=== PATIENT | female | born 1955 | race Caucasian/White ===

== ENCOUNTER 2016-11-29 09:40 | Emergency (ER) | payer BC, OTHER ==
[2016-11-29] MEDS ORDERED: METHYLPREDNISOLONE PF 125MG/VIAL IVP ONE (10:00)
[2016-11-29] MEDS ORDERED: METHYLPREDNISOLONE PF 125MG/VIAL IVP SCH (10:00)
--- NOTE | 2016-11-29 10:01 | Emergency Department Record ---
History of Present Illness - General Chief Complaint: Difficulty Breathing Stated Complaint: ARA Time Seen by Provider: 11/29/16 09:55 Source: Patient Mode of Arrival: Wheelchair Limitations: No limitations - History of Present Illness Initial Comments: 61 yo female presents to ED with a CC of sore throat and difficulty breathing that began last night associated with a fever of 101.5 last night. Patient denies chest pain or discomfort, denies cough symptoms. Patient denies rash, itching, or wheezing symptoms. Patient denies health problems other than depression. Onset/Timin -: Days(s) Severity: Moderate Consistency: Constant Worsens With: Nothing Associated Symptoms: Other Treatments Prior to Arrival: None - Related Data Home Medications Medication Instructions Recorded Confirmed Last Taken Zolpidem Tartrate [Zolpidem 5 mg PO QHS 12/14/13 11/29/16 11/28/16 Tartrate] Duloxetine HCl [Cymbalta] 30 mg PO DAILY 11/29/16 11/29/16 11/28/16 Levothyroxine Sodium [Synthroid] 25 mcg PO DAILY 11/29/16 11/29/16 11/28/16 Previous Rx's Medication Instructions Recorded Ibuprofen [Motrin 600Mg] 600 mg PO Q8H #30 tablet 03/24/15 Amoxicillin 500 mg PO TID #29 capsule 11/29/16 Allergies Allergy/AdvReac Type Severity Reaction Status Date / Time No Known Drug Allergies Allergy Verified 03/24/15 16:40 Travel Screening - Travel/Exposure Within Last 30 Days Have you traveled within the last 30 days?: No - Travel/Exposure Within Last Year Have you traveled outside the [place] in the last year?: No - Additonal Travel Details Have you been exposed to anyone with a communicable illness?: No Review of Systems Constitutional: Reports: Fever. Denies: Chills, Malaise, Night sweats Eyes: Denies: Eye discharge, Eye pain ENT: Reports: Throat pain. Denies: Congestion, Dental pain Respiratory: Reports: Dyspnea. Denies: Cough Cardiovascular: Denies: Chest pain, Dyspnea on exertion Endocrine: Denies: Fatigue, Heat or cold intolerance Gastrointestinal: Denies: Abdominal pain, Nausea, Vomiting Genitourinary: Denies: Incontinence, Retention Musculoskeletal: Denies: Back pain, Gout Skin: Denies: Bruising, Change in color Neurological: Denies: Abnormal gait, Confusion, Headache, Seizure Psychiatric: Denies: Anxiety Hematological/Lymphatic: Denies: Anemia, Blood Clots Past Medical History - SOCIAL HISTORY Smoking Status: Former smoker Alcohol Use: Occassional Drug Use: None - RESPIRATORY Hx Respiratory Disorders: No - CARDIOVASCULAR Hx Cardio Disorders: No - NEURO Hx Neuro Disorders: Yes Hx Headaches: Yes (MIGRAINES) Hx of Migraines: Yes (rarely) - GI Hx GI Disorders: No - Hx Genitourinary Disorders: No - ENDOCRINE Hx Endocrine Disorders: Yes Hx Thyroid Disease: Yes - MUSCULOSKELETAL Hx Musculoskeletal Disorders: Yes Hx Arthritis: Yes - PSYCH Hx Psych Problems: Yes Hx Anxiety: Yes - HEMATOLOGY/ONCOLOGY Hx Hematology/Oncology Disorders: Yes Hx Cancer: Yes (melanoma right shpulder. BCC abdomen) Family Medical History Any Significant Family History?: No Physical Exam - General General Appearance: Alert, Oriented x3, Cooperative, Mild distress Limitations: No limitations - Head Head exam: Atraumatic, Normocephalic, Normal inspection Head exam detail: negative: Abrasion, Contusion, Mercer's sign, General tenderness, Hematoma, Laceration - Eye Eye exam: Normal appearance. negative: Conjunctival injection, Periorbital swelling, Periorbital tenderness, Scleral icterus - ENT Ear exam: negative: Auricular hematoma, Auricular trauma Mouth exam: negative: Drooling, Laceration, Muffled voice, Tongue elevation Throat exam: Tonsillar erythema, Other (Unable to visulaize the posterior pharynx on examination) - Neck Neck exam: Normal inspection. negative: Lymphadenopathy, Meningismus - Respiratory Respiratory exam: Normal lung sounds bilaterally. negative: Rales, Respiratory distress, Rhonchi, Stridor - Cardiovascular Cardiovascular Exam: Regular rate, Normal rhythm, Normal heart sounds - GI/Abdominal GI/Abdominal exam: Soft. negative: Rebound, Rigid, Tenderness - Rectal Rectal exam: Deferred - exam: Deferred - Extremities Extremities exam: Normal inspection. negative: Pedal edema, Tenderness - Back Back exam: Denies: CVA tenderness (R), CVA tenderness (L) - Neurological Neurological exam: Alert, Oriented X3 - Psychiatric Psychiatric exam: Normal affect, Normal mood - Skin Skin exam: Normal color. negative: Abrasion Type of lesion: negative: abrasion Course Vital Signs 11/29/16 09:41 Temperature 98.2 F Pulse Rate 74 Respiratory 20 Rate Blood Pressure 136/76 Pulse Ox 100 - Reevaluation(s) Reevaluation #1: 11/29/16 10:00 EKG: NST 71 Normal axis, normal intervals No acute ST-T wave changes are present Reevaluation #2: 11/29/16 10:50 Labs reviewed, patient is positive for strep pharyngitis, labs are otherwise grossly unremarkable for an acute process. CT ST neck is pending to exclude underlying abscess. Reevaluation #3: 11/29/16 11:24 CT Soft Tissue Neck: Mild mucosal edema to the posterior pharynx c/w pharyngitis , no abscess, 4 mm stone rightt submandibular gland duct. patient and her significant other were updated on all results, and the patient appears stable for discharge at this time on Amoxicillin for treatment of her strep pharyngitis. Medical Decision Making - Lab Data Result diagrams: 11/29/16 10:06 11/29/16 10:06 Disposition Disposition: Discharge Clinical Impression: Strep pharyngitis Disposition: Home, Self-Care Condition: (2) Stable Instructions: Pharyngitis (ED) Additional Instructions: Return to ED if your symptoms worsen or if you have any concerns. Amoxicillin as directed. Follow-up with your family doctor in 3-5 days as directed. Prescriptions: Amoxicillin 500 mg PO TID #29 capsule Forms: Patient Portal Access Time of Disposition: 11:26
[2016-11-29 10:29] LABS: BASO % 0.4 % (0-6); EOS % 1.8 % (0-6); HEMATOCRIT 39.2 % (35.0-47.0); HEMOGLOBIN 13.2 gm/dl (11.6-16.0); LYMPH % 12.3 % (16-45); MEAN CELL VOLUME 88.1 fl (81-97); MEAN CORPUSCULAR HEMOGLOBIN 29.7 pg (27-33); MEAN CORPUSCULAR HGB CONC 33.7 g/dl (32-36); MEAN PLATELET VOLUME 10.1 fl (7.4-10.4); MONO % 10.5 % (0-9); PLATELET COUNT 240 K/uL (130-400); RED BLOOD COUNT 4.45 M/uL (3.80-5.40); RED CELL DISTRIBUTION WIDTH 13.8 % (11.5-14.5); WHITE BLOOD COUNT W/O DIFF 7.1 K/uL (4.2-12.2)
[2016-11-29 10:40] LABS: ALB/GLOB RATIO 1.3 (1.1-1.8); ALBUMIN 3.9 gm/dL (3.5-5.0); ALKALINE PHOSPHATASE 85 U/L (38-126); ALT/SGPT 16 U/L (9-52); ANION GAP 7.5 (7-16); AST/SGOT 22 U/L (14-36); BILIRUBIN,TOTAL 0.59 mg/dL (0.2-1.3); BLOOD UREA NITROGEN 13 mg/dL (7-17); CARBON DIOXIDE 22.5 mmol/L (22-30); CREATININE 0.8 mg/dL (0.52-1.04); EST GLOMERULAR FILTRATION RATE > 60 ml/min; GLUCOSE,RANDOM 92 mg/dL (70-110); TOTAL PROTEIN 6.8 gm/dL (6.3-8.2)
[2016-11-29] MEDS ORDERED: AMOXICILLIN 500MG CAPSULE PO ONE (10:58)
--- NOTE | 2016-11-30 22:48 | CT SCAN REPORT ---
EXAM: CT SCAN SOFT TISSUE NECK W CONTRAST HISTORY: SORE THROAT AND SWELLING. SYMPTOMS FOR THE PAST DAY. TECHNIQUE: Standard CT imaging of the neck was performed with contrast. 100 mL of Omnipaque-300 were administered. Additional coronal and sagittal reformatted images were also performed. COMPARISON: None. FINDINGS: The visualized intracranial structures are normal. The orbits, sinuses, mastoids, and middle ear cavities are unremarkable. The nasopharynx is normal. There is mild nonspecific mucosal edema within the posterior oropharynx/ hypopharynx as well as the soft palate and uvula suggesting pharyngitis. There is no loculated fluid collection or abscess. There is no mass. The epiglottis and aryepiglottic folds are normal. The retropharyngeal soft tissues are normal. The larynx is unremarkable. There are scattered nonenlarged lymph nodes within the neck bilaterally. There is no pathologic lymphadenopathy. A calcified stone is present within the right submandibular duct just inferior and medial to the submandibular gland. This measures 4 mm in maximal dimension. There is no associated inflammatory change. The parotid glands are normal. The thyroid gland enhances homogeneously. The superior mediastinum and lung apices are normal. IMPRESSION: 1. NONSPECIFIC MUCOSAL EDEMA WITHIN THE SOFT PALATE, UVULA, POSTERIOR OROPHARYNX , AND HYPOPHARYNX SUGGESTING PHARYNGITIS. THERE IS NO ABSCESS OR MASS. 2. A 4 MM RIGHT SUBMANDIBULAR GLAND DUCT STONE WITH NO ASSOCIATED INFLAMMATORY CHANGES. JOB NUMBER: [id number] MTDD
== END 2016-11-29 11:38 | disposition home or self-care (01) ==
LOC: ER 09:40
DX: J02.0 Streptococcal pharyngitis (principal); R06.00 Dyspnea, unspecified; K11.5 Sialolithiasis; Z87.81 Personal history of (healed) traumatic fracture
CPT/HCPCS: 99284 ×2; 96374; 85025; 80053; 87880; 70491; 93005; 93010; Q9967; J2930

== ENCOUNTER 2019-06-16 07:29 | Day surgery (SDC) | payer MEDICARE ==
[~2019-06-16 07:29] MED LIST: ACETAMINOPHEN 1,000 MG/100 ML BTL IVPB ONE; CEFAZOLIN 2 Gram 2 GM/50 ML BAG IVPB ONE; FAMOTIDINE 20MG TABLET PO ONE; METOCLOPRAMIDE 10 MG TABLET PO ONE; SCOPOLAMINE 1 PATCH TDSY TD ONE
[2019-06-16] MEDS ORDERED: KETOROLAC 30 MG/ML VIAL IVP ONE (07:30)
[2019-06-16] MEDS ORDERED: ONDANSETRON HCL IV 4 MG/2 ML VIAL IVP ONE (07:30)
[2019-06-16] MEDS ORDERED: MIDAZOLAM HCL 2MG/2ML VIAL IV ONE (07:30)
[2019-06-16] MEDS ORDERED: FENTANYL PF 100MCG/2ML VIAL IV ONE (07:30)
[2019-06-16] MEDS ORDERED: LIDOCAINE 2% MDV (20MG/ML) 20ML VIAL IV ONE (07:30)
[2019-06-16] MEDS ORDERED: SEVOFLURANE 250 ML INH ONE (07:30)
[2019-06-16] MEDS ORDERED: PROPOFOL 10 MG/ML VIAL IV ONE (07:30)
[2019-06-16] MEDS ORDERED: RINGERS SOLUTION,LACTATED 1,000 ML IV ONE (08:00)
[2019-06-16] MEDS ORDERED: BUPIVACAINE 0.25% W/EPI MPF 30ML VIAL SQ ONE (08:59)
[2019-06-16] MEDS ORDERED: ACETAMINOPHEN 500 MG TABLET PO ONE (09:50)
--- NOTE | 2019-06-17 08:13 | Operative Note ---
DATE OF SURGERY: 06/16/2019 SURGEON: Karri Liriano D.O. REFERRING PHYSICIAN: Robin Espinoza M.D. PREOPERATIVE DIAGNOSIS: 1. TORN MEDIAL MENISCUS LEFT KNEE. 2. CHONDROMALACIA OF THE LEFT KNEE. POSTOPERATIVE DIAGNOSIS: 1. TORN MEDIAL MENISCUS OF THE LEFT KNEE. 2. CHONDROMALACIA OF THE PATELLA, MEDIAL FEMORAL CONDYLE AND LATERAL FEMORAL CONDYLE LEFT KNEE. OPERATION: 1. ARTHROSCOPIC PARTIAL MEDIAL MENISCECTOMY LEFT KNEE. 2. ARTHROSCOPIC CHONDROPLASTY MEDIAL FEMORAL CONDYLE, LATERAL FEMORAL CONDYLE, AND PATELLA LEFT KNEE. DESCRIPTION: This 63-year-old female was taken to the Operating Room and placed in the supine position on the operating room table. General anesthesia was induced and the left lower extremity was elevated. It was exsanguinated and the tourniquet inflated to 300 mmHg. Arthroscope knee borrero applied. The left knee was prepped with Hibiclens and draped in the usual sterile fashion. An inferolateral portal was established for the 4 mm arthroscope and initial evaluation of the joint demonstrated advanced Grade 3 changes noted throughout the entire articulated surface of the patella. Chondroplasty was performed to stabilize the articular cartilage there. The intercondylar notch was examined and found to be normal. The medial compartment was entered and a complex tear of the posterior horn of the medial meniscus was present. A horizontal cleavage tear was identified and this tear extended from approximately the 9:30-10:00 o'[address] position all the way around to the posterior attachment. The root was not torn and there were horizontal cleavage components which were resected and this was done and then probed to confirm stability. The patient did have advanced degenerative disease with Grade 3 changes noted in the medial femoral condyle and Grade 2 changes noted on the medial tibial plateau. Chondroplasty of the femoral condyle was performed to stabilize the articular cartilage there. The intercondylar notch was examined and found to be normal. The lateral compartment was entered and Grade 3 chondromalacia noted in the lateral femoral condyle as well and chondroplasty was performed with advanced Grade 2 changes noted in the tibial plateau as well, but this was not grossly unstable and not further disturbed. The lateral meniscus was probed and found to be normal. The joint was then copiously irrigated and suctioned, the instruments were removed, the portals infiltrated with 0.25% Marcaine with Epinephrine, sterile dressings applied, tourniquet and knee borrero were released, and the patient was taken to the Recovery Room in satisfactory condition. GROSS PATHOLOGY: This patient demonstrated advanced degenerative disease of all compartments with a complex tear of the posterior horn and a small portion of the body of the medial meniscus as well. JOB NUMBER: [id number] MTDD
== END 2019-06-16 10:20 | disposition home or self-care (01) ==
LOC: SUR 07:29
PROVIDERS: ATTEND Orthopaedic Surgery
DX: S83.232A Complex tear of medial meniscus, current injury, left knee, initial encounter (principal); M94.262 Chondromalacia, left knee; E03.9 Hypothyroidism, unspecified
CPT/HCPCS: 29881; 01400; J1885; J2405; J3010; J0690; J7120